=== PATIENT | male | born 1980 | race Caucasian/White ===

== ENCOUNTER 2018-08-21 10:37 | Emergency (ER) | payer OTHER ==
[~2018-08-21] VITALS: Ht 198.1 cm; Wt 131.5 kg
[2018-08-21] MEDS ORDERED: Percocet 5-3251 EACH PO (11:45)
[2018-08-21] MEDS ORDERED: CEPH500 PO (11:45)
[2018-08-21] MEDS ORDERED: Ultram50 MG PO (12:08)
== END 2018-08-21 12:08 | disposition home or self-care (01) ==
LOC: ER 10:37
DX: S62.634B Displaced fracture of distal phalanx of right ring finger, initial encounter for open fracture (principal); W23.0XXA Caught, crushed, jammed, or pinched between moving objects, initial encounter; F17.200 Nicotine dependence, unspecified, uncomplicated
CPT/HCPCS: 73140; 90471; 90714; 99283-25